=== PATIENT | male | born 1960 | race Caucasian/White ===

== ENCOUNTER 2018-10-15 11:09 | Outpatient (CLI) | payer OTHER ==
--- NOTE | 2018-10-15 11:36 | RAD ---
2 views right hand: 10/15/2018 COMPARISON: None HISTORY: Carpal tunnel surgery in the past, worsening hand pain, lack of dexterity, and numbness and pain FINDINGS: No fracture or dislocation. No radiopaque foreign body or subcutaneous gas. IMPRESSION: No acute findings.
== END 2018-10-15 11:10 | disposition home or self-care (01) ==
LOC: BICRAD 11:09
PROVIDERS: ATTEND Internal Medicine
DX: Z02.71 Encounter for disability determination (principal)